=== PATIENT | female | born 1950 ===

== ENCOUNTER 2016-10-27 10:49 | Emergency (ER) | payer MEDICARE ==
[2016-10-27 12:06] VITALS: BP 166/87
--- NOTE | 2016-10-27 12:32 | UC ---
Emily Gayle Rebecca, scribed for Yolande Steward MD on 10/27/16 at 1200 . Cardiac HPI - HPI Summary HPI Summary: Pt is a 66 y/o F who presents to [facility] c/o L neck, posterior upper shoulder pain. Pain began 2 days ago and has been intermittent since onset, worsening last night. Pain is in the L shoulder with radiation to the neck and down the LUE and is currently mild, ranked 3/10 and characterized as an ache. Aggravated by movement, alleviated by hot showers, ASA (2 tabs of 81 mg ASA) and an extra dose of Nadolol. Pt denies trauma. Pt states when pain present, she stretches arm in full extension which improves her symptoms. Denies CP, SOB , nausea, belching, calf cramping, lightheadedness, diaphoresis, difficulty walking. Negative trauma. Last stress test was multiple years ago in [place]. Has been sleeping at a hotel for the past 3 days as she is visiting the area from [place]. Pt states has been lifting luggage in and out of car. Is not on any blood thinners. PMHx A Fib (takes Nadolol). PT RHD. Patient's medications reviewed this visit. - History of Current Complaint Chief Complaint: ChestPain Stated Complaint: LT SHOULDER PAIN THRU BACK AREA Time Seen by Provider: 10/27/16 11:58 Hx Obtained From: Patient Onset/Duration: Lasting Days - 2 days ago, Still Present Timing: Intermittent Episodes Lasting: Current Severity: Mild Pain Intensity: 3 - L shoulder with radiation to the neck and LUE Character: Dull/Aching Aggravating: Movement Alleviating: Medication - Nadolol, OTC Meds - ASA Associated Signs & Symptoms: Positive: Negative. Negative: Chest Pain, SOB, Diaphoresis, Nausea/Vomiting, Calf Pain/Swelling - Allergy/Home Medications Allergies/Adverse Reactions: Allergies Allergy/AdvReac Type Severity Reaction Status Date / Time No Known Allergies Allergy Verified 10/27/16 11:33 Home Medications: Home Medications Aspirin [Aspirin 81 MG TAB] 162 mg 10/27/16 [History] Nadolol TAB* [Corgard TAB*] 20 mg 10/27/16 [History] PMH/Surg Hx/FS Hx/Imm Hx Previously Healthy: Yes Cardiovascular History: Atrial Fibrillation - Takes Nadolol, Other Other Cardiovascular History: MVP - Surgical History Surgical History: None - Family History Known Family History: Positive: Hypertension, Other - [place] (father) - Social History Occupation: Retired Alcohol Use: None Substance Use Type: None Smoking Status (MU): Never Smoked Tobacco Review of Systems Constitutional: Negative Skin: Negative Eyes: Negative ENT: Negative Respiratory: Negative Cardiovascular: Negative Gastrointestinal: Negative Genitourinary: Negative Motor: Negative Neurovascular: Negative Musculoskeletal: Other: - L shoulder pain with radiation to the neck and LUE Neurological: Negative Psychological: Negative All Other Systems Reviewed And Are Negative: Yes Physical Exam Triage Information Reviewed: Yes Appearance: Well-Appearing, No Pain Distress, Well-Nourished Vital Signs: Initial Vital Signs Temp 98.4 F 10/27/16 11:35 Pulse 54 10/27/16 11:35 Resp 16 10/27/16 11:35 BP 166/87 10/27/16 11:35 Pulse Ox 99 10/27/16 11:35 Vital Signs Reviewed: Yes Eye Exam: Normal Eyes: Positive: Conjunctiva Clear ENT Exam: Normal ENT: Positive: Hearing grossly normal, Pharynx normal, TMs normal Dental Exam: Normal Neck exam: Normal Neck: Positive: Supple, Nontender, No Lymphadenopathy Respiratory Exam: Normal Respiratory: Positive: Chest non-tender, Lungs clear, Normal breath sounds Cardiovascular Exam: Normal Cardiovascular: Positive: RRR, No Murmur Abdominal Exam: Normal Abdomen Description: Positive: Nontender, No Organomegaly, Soft Bowel Sounds: Positive: Present Musculoskeletal: Positive: Other: - No spinous process pain c/t/l/s Full AROM c spine - pain in left cervical paraspinal area with full flexion and rotation to the right. + abduction shoulder - reproducible pain with testing along left trapezius Full flex/ext elbow + pronate/supinate 5/5 grasp Neurological Exam: Normal Neurological: Positive: Alert, Other: - + thumb up, ok, finger cross, finger spread + gross sensation throughout Psychological Exam: Normal Psychological: Positive: Normal Response To Family Skin Exam: Normal Diagnostics - EKG Cardiac Rate: Bradycardia - 51 bpm - Pt took an extra dose of beta nella today Cardiac Rhythm: Sinus: Normal ST Segment: Normal - No ST T wave changes - Assessment/Plan Course Of Treatment: Blood pressure noted and patient informed to follow up with PCP. pt with pain over left trapezius muscle and left paraspinal cervical spine. Pt reports improvement with ASA and heat. Pt describes occasional radicular paresthesia. Pt's CSM intact with reproducible pain on exam. Pt declined muscle relaxer or sling. recommend heat. stretch. motrin/apap with food. pcp f/u. Pt comfortable and in agreement with plan - Clinical Impression Provider Diagnoses: trapezius muscle spasm Discharge - Discharge Plan Condition: Stable Disposition: HOME Patient Education Materials: Musculoskeletal Pain (ED), Muscle Spasm (ED) Referrals: No Primary Care Phys,NOPCP [Primary Care Provider] - Additional Instructions: - apply heat to your shoulder and upper back 2-3 times a day. Once your muscles are warm, slow gentle stretching exercise - Okay to alternate ibuprofen (Motrin, ADvil) 400mg and Tylenol every 3 hours for pain. Take with food. Do NOT Take for more adina 4-5 days - try to relax your upper back if you are holding your body tight - Contact your doctor today in [place] to schedule a follow-up appointment when you return next week - If you develop chest pain, shortness of breath, nausea, lightheadedness or any other concerns call 911 or go to the emergency [facility] The documentation as recorded by the Emily levy Rebecca accurately reflects the service I personally performed and the decisions made by me, Yolande Steward MD.
== END 2016-10-27 12:35 | disposition home or self-care (01) ==
LOC: UCEAST 10:49
DX: M62.838 Other muscle spasm (principal)
CPT/HCPCS: 93005; 99201; G0463